=== PATIENT | female | born 1950 | race Asian ===

== ENCOUNTER 2020-05-26 11:51 | Emergency (ER) | payer OTHER ==
[~2020-05-26] VITALS: Ht 154.9 cm; Wt 58.1 kg
[2020-05-26 11:58] VITALS: BP 173/104; Ht 154.9 cm; Wt 58.1 kg
== END 2020-05-26 15:00 | disposition home or self-care (01) ==
LOC: ED 11:51
DX: M25.532 Pain in left wrist (principal); M77.8 Other enthesopathies, not elsewhere classified; I10 Essential (primary) hypertension